=== PATIENT | male | born 1975 | race Caucasian/White ===

== ENCOUNTER 2016-12-04 08:40 | Outpatient (CLI) | payer OTHER | END 2016-12-04 08:41 | disposition home or self-care (01) | LOC: SC 08:40 | PROVIDERS: ATTEND Nurse Practitioner Family | DX: G47.33 Obstructive sleep apnea (adult) (pediatric) (principal) | CPT/HCPCS: 99212; 99214 ==

== ENCOUNTER 2017-01-07 15:48 | Outpatient (CLI) | payer OTHER | END 2017-01-07 15:49 | disposition home or self-care (01) | LOC: SC 15:48 | PROVIDERS: ATTEND Nurse Practitioner Family | DX: G47.33 Obstructive sleep apnea (adult) (pediatric) (principal) | CPT/HCPCS: 99212; 99214 ==

== ENCOUNTER 2018-04-20 14:11 | Outpatient (CLI) | payer OTHER | END 2018-04-20 14:12 | disposition home or self-care (01) | LOC: SC 14:11 | PROVIDERS: ATTEND Internal Medicine Pulmonary Disease | DX: G47.33 Obstructive sleep apnea (adult) (pediatric) (principal) | CPT/HCPCS: 99212; 99213 ==

== ENCOUNTER 2020-01-22 19:14 | Emergency (ER) | payer OTHER ==
[2020-01-22 19:27] VITALS: BP 138/89
[2020-01-22] MEDS ORDERED: HYDROcod/ACET 5/325 Prepack 4 PO STA (20:13)
[2020-01-22] MEDS ORDERED: COLCHICINE 0.6 MG TABLET PO STA (20:13)
[2020-01-22] MEDS ORDERED: DEXAMETHASONE 10 MG/ML VIAL IM STA (20:13)
--- NOTE | 2020-01-22 20:15 | ED Physician Documentation ---
PD HPI LOWER EXT INJURY - Stated complaint Stated Complaint: BILAT FOOT PAIN - GOUT - Chief complaint Chief Complaint: Ext Problem - History obtained from History obtained from: Patient - History of Present Illness PD HPI LOW EXT INJURY LOCATION: Right - Additional information Additional information: 44-year-old gentleman, active duty in the [employer]. Has a history of gout. Of last 10 days he has had a progressive gout flare in the right foot and ankle. He used to be on allopurinol but is not anymore and does not want to go back on it. 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 No fever. Review of Systems Constitutional: reports: Reviewed and negative Throat: reports: Reviewed and negative PD PAST MEDICAL HISTORY - Past Medical History Past Medical History: Yes Cardiovascular: None Respiratory: None Endocrine/Autoimmune: None GI: None : None HEENT: None Psych: None Musculoskeletal: Gout Derm: None - Past Surgical History Past Surgical History: No General: Appendectomy - Present Medications Home Medications: Ambulatory Orders Medication Instructions Recorded Confirmed Multivitamin [Multi-Day Vitamins] 1 each PO 08/26/13 08/26/13 allopurinoL [Zyloprim] 300 mg PO BID 08/26/13 08/26/13 oxyCODONE/ACET 5/325 [Percocet 5 1 - 2 each PO Q4-6H PRN #20 tablet 08/26/13 mg/325 mg] predniSONE [Deltasone] 40 mg PO DAILY 4 Days tablet 08/26/13 Colchicine 0.6 mg PO BID PRN #3 capsule 01/22/20 Hydrocodone/Acetaminophen 1 - 2 each PO Q6H PRN #14 tablet 01/22/20 [Hydrocodon-Acetaminophen 5-325] - Allergies Allergies/Adverse Reactions: Allergies Allergy/AdvReac Type Severity Reaction Status Date / Time No Known Drug Allergies Allergy Verified 01/22/20 19:23 - Social History Does the pt smoke?: No Smoking Status: Never smoker Does the pt drink ETOH?: No Does the pt have substance abuse?: No - Immunizations Immunizations are current?: Yes - POLST Patient has POLST: No PD ED PE NORMAL - Vitals Vital signs reviewed: Yes - General General: Alert and oriented X 3, No acute distress - Extremities Extremities: Other (Warmth and redness on the medial side of the right ankle the and tender there. No deformity.) - Neuro Neuro: Alert and oriented X 3, Normal speech Results - Vitals Vitals: Vital Signs - 24 hr 01/22/20 19:23 Temperature 36.5 C Heart Rate 79 Respiratory 16 Rate Blood Pressure 138/89 H O2 Saturation 97 Oxygen O2 Source Room air Departure - Departure Disposition: Home, Self Care Clinical Impression: Gout flare Qualifiers: Gout site: ankle Gout etiology: idiopathic Laterality: right Qualified Code(s): M10.071 - Idiopathic gout, right ankle and foot Condition: Good Record reviewed to determine appropriate education?: Yes Instructions: ED Diet Gout, ED Arthritis Gout Prescriptions: Colchicine 0.6 mg PO BID PRN #3 capsule PRN Reason: Pain Hydrocodone/Acetaminophen [Hydrocodon-Acetaminophen 5-325] 1 - 2 each PO Q6H PRN #14 tablet PRN Reason: pain Comments: Call your doctor to arrange a follow-up appointment, make the next available appointment. In the interim, return anytime if worse or if new symptoms develop.
== END 2020-01-22 20:27 | disposition home or self-care (01) ==
LOC: ED 19:14
DX: M10.071 Idiopathic gout, right ankle and foot (principal)
CPT/HCPCS: 96372; 99283; A9270

== ENCOUNTER 2021-07-28 08:00 | Outpatient (CLI) | payer OTHER | END 2021-07-28 23:59 | disposition home or self-care (01) | LOC: LAB.N 08:00 | PROVIDERS: ATTEND Physician Assistant | DX: R05.3 Chronic cough (principal); Z20.822 Contact with and (suspected) exposure to COVID-19 ==

== ENCOUNTER 2023-09-19 10:32 | Emergency (ER) | payer OTHER ==
[2023-09-19 10:42] VITALS: O2SAT 100
--- NOTE | 2023-09-19 10:42 | ED Physician Documentation ---
PD HPI LOWER EXT INJURY - Stated complaint Stated Complaint: LT FOOT PAIN - Chief complaint Chief Complaint: Ext Problem - History obtained from History obtained from: Patient - History of Present Illness PD HPI LOW EXT INJURY LOCATION: Left, Foot Type of injury: Other (he had gone for short run few days ago without noted injury but feels that that likely initiated current gout flare up. Has had then often in the past, with somewhat chronic pain from arthritic changes and tophi chronically.). No: Fall, Twist Similar symptoms before: Diagnosis (intermediate recurrent gout) Review of Systems Neurologic: denies: Focal weakness, Numbness PD PAST MEDICAL HISTORY - Past Medical History Cardiovascular: None Respiratory: None Endocrine/Autoimmune: None GI: None : None HEENT: None Psych: None Musculoskeletal: Gout Derm: None - Past Surgical History Past Surgical History: No General: Appendectomy - Present Medications Home Medications: Ambulatory Orders Medication Instructions Recorded Confirmed Multivitamin [Multi-Day Vitamins] 1 each PO 08/26/13 08/26/13 allopurinoL [Zyloprim] 300 mg PO BID 08/26/13 08/26/13 oxyCODONE/ACET 5/325 [Percocet 5 1 - 2 each PO Q4-6H PRN #20 tablet 08/26/13 mg/325 mg] predniSONE [Deltasone] 40 mg PO DAILY 4 Days tablet 08/26/13 Colchicine 0.6 mg PO BID PRN #3 capsule 01/22/20 Hydrocodone/Acetaminophen 1 - 2 each PO Q6H PRN #14 tablet 01/22/20 [Hydrocodon-Acetaminophen 5-325] Colchicine 0.6 mg PO TID PRN #30 tablet 09/19/23 HYDROcod/ACETAM 5/325 [[place] 5/325] 1 ea PO Q6H PRN #14 tablet 09/19/23 Meloxicam [Mobic] 7.5 mg PO BID 10 Days #20 tablet 09/19/23 - Allergies Allergies/Adverse Reactions: Allergies Allergy/AdvReac Type Severity Reaction Status Date / Time No Known Drug Allergies Allergy Verified 09/19/23 10:35 - Social History Does the pt smoke?: No Smoking Status: Never smoker Does the pt drink ETOH?: No Does the pt have substance abuse?: No - Immunizations Immunizations are current?: Yes - POLST Patient has POLST: No PD ED PE NORMAL - Vitals Vital signs reviewed: Yes - General General: Alert and oriented X 3, Well developed/nourished - Derm Derm: Normal color, Warm and dry - Extremities Extremities: Other (left foot with marked tenderness, redness, warmth without skin lesions around great toe and 5th toe MTPs in particular. 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 No appearance of infections/abscesses. ) - Neuro Neuro: Alert and oriented X 3, No motor deficit, No sensory deficit Results - Vitals Vitals: Vital Signs - 24 hr 09/19/23 09/19/23 10:35 12:13 Temperature 36.8 C 36.5 C Heart Rate 75 72 Respiratory 16 16 Rate Blood Pressure 130/90 H 128/88 H O2 Saturation 100 100 Oxygen O2 Source Room air PD Medical Decision Making - ED course Complexity details: considered differential (large tophi around MTPs c/w chronic gout. Red with tender acutely. Not improving with Ibuprofen and does not have colchicine on hand. ), d/w patient Departure - Departure Disposition: 01 Home, Self Care Clinical Impression: Foot pain, Exacerbation of gout Condition: Stable Instructions: ED Arthritis Gout Prescriptions: Colchicine 0.6 mg PO TID PRN #30 tablet PRN Reason: Pain 1-4 Meloxicam [Mobic] 7.5 mg PO BID 10 Days #20 tablet HYDROcod/ACETAM 5/325 [[place] 5/325] 1 ea PO Q6H PRN #14 tablet PRN Reason: Pain Comments: Stay well-hydrated. Hold on your allopurinol until this flareup is improved. Use the colchicine 3-4 times daily with food so it does not bother your stomach. Cut back to twice a day if you need to for upset stomach. Combine with NSAID anti-inflammatory. I wrote for meloxicam twice daily with food as well. This is typically better tolerated on the stomach and does not have central side effects like indomethacin sometimes does. To that add Tylenol 500 to 650 mg 4 times daily and add hydro codone/acetaminophen if needed for worse pain. This would be intended short- term until the flareup is decreasing over the next few days. I sent your prescription to your preferred pharmacy, [facility]. Recheck if not improving well over the next few days return if worse. I am prescribing a short course of narcotic pain medication for you. These are potentially dangerous and addictive medications that should be used carefully. These medications may constipate you. Take an [id number] stool softener such as docusate twice daily with plenty of water while taking these medications. If you go 24 hours without a bowel movement, take [id number] MiraLAX, per package instructions. Do not drink or drive while taking these medications. If you received narcotic or sedating medications while in the emergency department do not drive for 24 hours. Store this medication in a safe, secure place and out of reach of children. It is a violation of federal law to give or sell this medication to another person or to use in a manner other than prescribed. The ED will not refill narcotic prescriptions, including prescriptions lost or stolen. You can dispose of unwanted medications at the [facility] office or at several pharmacies such as [facility] - [facility] now [facility]. Forms: PCP List Discharge Date/Time: 09/19/23 12:13
[2023-09-19] MEDS: KETOROLAC 30 MG/ML VIAL IM STA (11:34)
[2023-09-19] MEDS: COLCHICINE 0.6 MG TABLET PO STA (11:35)
[2023-09-19 12:21] VITALS: BP 128/88
== END 2023-09-19 12:13 | disposition home or self-care (01) ==
LOC: ED 10:32
DX: M10.9 Gout, unspecified (principal)
CPT/HCPCS: 96372; 99283; 99284; A9270